=== PATIENT | male | born 1960 | race Native Hawaiian/Other Pacific Islander ===

== ENCOUNTER 2016-07-04 08:22 | Outpatient (CLI) | payer OTHER ==
[~2016-07-04 08:22] MED LIST: ADVIL200 M1 OR; HYDR-3182 PO; HYDROCHLOROT12.5 M1 PO; LEXAPRO20 MG OR; LOSA50TA PO; ROBAXIN-750750 MG PO; ZORVOLEX35 MG PO
== END 2016-07-04 23:37 | disposition home or self-care (01) ==
LOC: RAD 08:22
DX: Z01.818 Encounter for other preprocedural examination (principal)

== ENCOUNTER 2016-08-11 11:53 | Outpatient (CLI) | payer OTHER | END 2016-08-11 20:47 | disposition home or self-care (01) | LOC: RAD 11:53 | DX: M25.561 Pain in right knee (principal) ==

== ENCOUNTER 2016-09-06 08:55 | Outpatient (CLI) | payer OTHER | END 2016-09-06 19:03 | disposition home or self-care (01) | LOC: MRI 08:55 | DX: M23.231 Derangement of other medial meniscus due to old tear or injury, right knee (principal) ==

== ENCOUNTER 2018-03-15 08:15 | Outpatient (CLI) | payer OTHER ==
[2018-03-15 08:52] LABS: PLATELET COUNT 201 K/uL (142-355)
[2018-03-15 08:57] LABS: POTASSIUM 4.5 mmol/L (3.6-5.2)
== END 2018-03-15 21:10 | disposition home or self-care (01) ==
LOC: LABW 08:15
PROVIDERS: Nurse Practitioner Adult Health
DX: R94.39 Abnormal result of other cardiovascular function study (principal); R07.9 Chest pain, unspecified
CPT/HCPCS: 36415; 80053; 80061; 82248; 85027